=== PATIENT | male | born 2000 | race African-American/Black ===

== ENCOUNTER 2021-05-28 09:56 | Inpatient (IN) ==
[2021-05-28] MEDS ORDERED: VANCOMYCIN INJ 1,250 MG in SODIUM CHLORIDE 0.9% 250 ML IV ONE (12:58)
[2021-05-28 13:22] LABS: Basophils % 0.3 % (0.0-0.8); Eosinophils % 0.2 % (0.00-10.9); Hematocrit 37.7 VOL% (42.0-52.0); Hemoglobin 12.1 GM/DL (14.0-18.0); Immature Granulocytes % 0.5 %; Immature Granulocytes Absolute 0.05 #; Lymphocytes # 1.1 10*3/uL (1.4-4.0); Lymphocytes % 10.1 % (21.2-54.2); Mean Corpuscular HGB Conc 32.1 GM/DL (32-36); Mean Corpuscular Volume 82.5 FL (87-102); Monocytes % 7.4 % (1.7-12.7); Neutrophils % 81.5 % (38.7-73.9); Platelet Count 254 T/CUMM (130-400); Red Blood Count 4.57 MC/CUMM (3.8-5.5); Red Cell Distribution Width 13.4 % (9.3-17.3); White Blood Count 10.6 T/CUMM (4-12)
[2021-05-28 13:36] LABS: Calcium 9.5 MG/DL (8.5-10.1); Potassium 3.7 MMOL/L (3.5-5.1)
[2021-05-28] MEDS ORDERED: DEXMEDETOMIDINE 200 MCG/2 ML VIAL ONE (13:56)
[2021-05-28] MEDS ORDERED: propofoL 200 MG/20 ML VIAL IV ONE (13:56)
[2021-05-28] MEDS ORDERED: MIDAZOLAM 2 MG/2 ML VIAL ONE ×2 (13:56→14:00)
[2021-05-28] MEDS ORDERED: fentaNYL 100 MCG/2 ML VIAL ONE (14:25)
[2021-05-28] MEDS ORDERED: LACTATED RINGERS 1,000 ML IV ONE (14:36)
[2021-05-28] MEDS ORDERED: ONDANSETRON 4 MG/2 ML VIAL ONE (14:36)
[2021-05-28] MEDS ORDERED: SEVOFLURANE 1 UNIT/15 MINUTE INH ONE (14:36)
[2021-05-28] MEDS ORDERED: ONDANSETRON 4 MG/2 ML VIAL IV PRN (14:59)
[2021-05-29] MEDS: VANCOMYCIN INJ 1,250 MG in SODIUM CHLORIDE 0.9% 250 ML IV SCH ×2 (03:04→16:02)
[2021-05-30] MEDS: VANCOMYCIN INJ 1,250 MG in SODIUM CHLORIDE 0.9% 250 ML IV SCH ×2 (04:16→16:34)
[2021-05-30] MEDS ORDERED: LIDOCAINE 1%/EPI INJ 20 ML VIAL ONE (09:50)
[2021-05-30] MEDS ORDERED: BUPIVACAINE MPF 0.25% 30 ML VIAL ONE (09:50)
[2021-05-30] MEDS ORDERED: MIDAZOLAM 2 MG/2 ML VIAL ONE (09:59)
[2021-05-30] MEDS ORDERED: propofoL 200 MG/20 ML VIAL IV ONE (09:59)
[2021-05-30] MEDS ORDERED: SEVOFLURANE 1 UNIT/15 MINUTE INH ONE (09:59)
[2021-05-30] MEDS ORDERED: LIDOCAINE 2% 5 ML VIAL ONE (09:59)
[2021-05-30] MEDS ORDERED: fentaNYL 100 MCG/2 ML VIAL ONE (09:59)
[2021-05-30] MEDS ORDERED: ONDANSETRON 4 MG/2 ML VIAL ONE (09:59)
[2021-05-30] MEDS ORDERED: LACTATED RINGERS 1,000 ML IV ONE (11:02)
[2021-05-31] MEDS: VANCOMYCIN INJ 1,250 MG in SODIUM CHLORIDE 0.9% 250 ML IV SCH ×2 (04:46→16:13)
[2021-06-01] MEDS: VANCOMYCIN INJ 1,250 MG in SODIUM CHLORIDE 0.9% 250 ML IV SCH ×2 (03:00→17:24)
[2021-06-01 06:18] LABS: Calcium 8.9 MG/DL (8.5-10.1); Osmolality,Calculated 274.5 MOS/KG (273-304); Potassium 4.3 MMOL/L (3.5-5.1)
[2021-06-01] MEDS ORDERED: LACTATED RINGERS 1,000 ML IV SCH (08:00)
[2021-06-01] MEDS ORDERED: propofoL 200 MG/20 ML VIAL IV ONE (08:21)
[2021-06-01] MEDS ORDERED: LIDOCAINE 2% 5 ML VIAL ONE (08:21)
[2021-06-01] MEDS ORDERED: MIDAZOLAM 2 MG/2 ML VIAL ONE (08:22)
[2021-06-01] MEDS ORDERED: fentaNYL 100 MCG/2 ML VIAL ONE (08:22)
[2021-06-01] MEDS ORDERED: SEVOFLURANE 1 UNIT/15 MINUTE INH ONE (09:12)
[2021-06-01] MEDS ORDERED: BUPIVACAINE MPF 0.25% 30 ML VIAL ONE (09:17)
[2021-06-01] MEDS ORDERED: LIDOCAINE 1%/EPI INJ 20 ML VIAL ONE (09:17)
[2021-06-02] MEDS: VANCOMYCIN INJ 1,250 MG in SODIUM CHLORIDE 0.9% 250 ML IV SCH (05:23)
[2021-06-02] MEDS: SULFAMETHOX/TRIMETHOPRIM 800-160 MG TABLET PO SCH (21:37)
[2021-06-03] MEDS: SULFAMETHOX/TRIMETHOPRIM 800-160 MG TABLET PO SCH ×2 (10:08→21:47)
[2021-06-03] MEDS: ATORVASTATIN 80 MG TABLET PO SCH (10:08)
[2021-06-04] MEDS ORDERED: LIDOCAINE 2% 5 ML VIAL ONE (07:13)
[2021-06-04] MEDS ORDERED: SEVOFLURANE 1 UNIT/15 MINUTE INH ONE (07:13)
[2021-06-04] MEDS ORDERED: fentaNYL 100 MCG/2 ML VIAL ONE (07:13)
[2021-06-04] MEDS ORDERED: propofoL 200 MG/20 ML VIAL IV ONE (07:13)
[2021-06-04] MEDS ORDERED: MIDAZOLAM 2 MG/2 ML VIAL ONE (07:14)
[2021-06-04] MEDS: SULFAMETHOX/TRIMETHOPRIM 800-160 MG TABLET PO SCH (11:00)
[2021-06-04] MEDS: ATORVASTATIN 80 MG TABLET PO SCH (11:00)
[2021-06-04 13:29] VITALS: BP 129/75
== END 2021-06-04 14:37 | disposition home or self-care (01) | DRG 384 ==
LOC: N.ED 09:56 → N.SDS 14:01 → N.SDSINP 14:02 → N.3E 16:23
PROVIDERS: ADMIT Surgery; ATTEND Surgery

== ENCOUNTER 2021-06-08 06:36 | Observation (INO) ==
[2021-06-08] MEDS ORDERED: LIDOCAINE 2% 5 ML VIAL ONE (08:28)
[2021-06-08] MEDS ORDERED: propofoL 200 MG/20 ML VIAL IV ONE (08:28)
[2021-06-08] MEDS ORDERED: fentaNYL 100 MCG/2 ML VIAL ONE ×2 (08:28→09:03)
[2021-06-08] MEDS ORDERED: SEVOFLURANE 1 UNIT/15 MINUTE INH ONE (08:28)
[2021-06-08] MEDS ORDERED: MIDAZOLAM 2 MG/2 ML VIAL ONE (08:28)
[2021-06-08] MEDS ORDERED: ONDANSETRON 4 MG/2 ML VIAL ONE (08:28)
[2021-06-08] MEDS ORDERED: BUPIVACAINE MPF 0.25% 30 ML VIAL ONE (08:29)
[2021-06-08] MEDS ORDERED: LIDOCAINE 1%/EPI INJ 20 ML VIAL ONE (08:29)
[2021-06-08] MEDS ORDERED: HYDROmorphone 2 MG/1 ML VIAL IV PRN (08:41)
[2021-06-08] MEDS ORDERED: ONDANSETRON 4 MG/2 ML VIAL IV PRN (08:41)
[2021-06-08] MEDS ORDERED: HYDROcod/ACETAMIN 7.5-325 MG/15 ML UDCUP PO PRN (08:41)
[2021-06-08] MEDS ORDERED: ACETAMINOPHEN 325 MG TABLET PO PRN (08:41)
[2021-06-09] MEDS: ATORVASTATIN 80 MG TABLET PO SCH (09:49)
[2021-06-09] MEDS: ENOXAPARIN 40 MG/0.4 ML SYRINGE SUBCUT SCH (09:49)
[2021-06-10] MEDS: ATORVASTATIN 80 MG TABLET PO SCH (10:14)
[2021-06-10] MEDS: ENOXAPARIN 40 MG/0.4 ML SYRINGE SUBCUT SCH (10:22)
[2021-06-11] MEDS ORDERED: LIDOCAINE 2% 5 ML VIAL ONE (06:30)
[2021-06-11] MEDS ORDERED: propofoL 200 MG/20 ML VIAL IV ONE (06:30)
[2021-06-11] MEDS ORDERED: SEVOFLURANE 1 UNIT/15 MINUTE INH ONE (06:30)
[2021-06-11] MEDS ORDERED: ONDANSETRON 4 MG/2 ML VIAL ONE (06:30)
[2021-06-11] MEDS ORDERED: fentaNYL 100 MCG/2 ML VIAL ONE (06:30)
[2021-06-11] MEDS ORDERED: MIDAZOLAM 2 MG/2 ML VIAL ONE (06:31)
[2021-06-11] MEDS ORDERED: LACTATED RINGERS 1,000 ML IV ONE (07:18)
[2021-06-11] MEDS: ATORVASTATIN 80 MG TABLET PO SCH (10:58)
[2021-06-11] MEDS: ENOXAPARIN 40 MG/0.4 ML SYRINGE SUBCUT SCH (10:58)
[2021-06-11 14:00] VITALS: BP 116/76
== END 2021-06-11 14:02 | disposition home health service (06) ==
LOC: N.OR 06:36 → N.SDSINP 06:38 → INTOOBSV 08:41 → N.SDSINP 08:41 → N.5E 14:56
PROVIDERS: ADMIT Student in an Organized Health Care Education/Training Program; ATTEND Student in an Organized Health Care Education/Training Program